=== PATIENT | female | born 1955 | race Caucasian/White ===

== ENCOUNTER 2016-10-09 13:13 | Inpatient (IN) | payer BC ==
[~2016-10-09] VITALS: Ht 152.4 cm; Wt 138.4 kg
[~2016-10-09 13:13] MED LIST: ADVAIR 250/501 DISK IH; ALBUTEROL2.5 MG/3 M IH; AMITRIPTYLINE H50 MG PO; ASPIR-LOW81 MG PO; ATIVAN1 MG PO; BACTRIM,SEPT1 TABLET PO; BENGAY GREASEL113 GM TP; BRILINTA90 MG PO; DIOVAN160 MG PO; DIOVAN320 MG PO; GLUMETZA1000 M1 PO; HUMALOG100 UNIT/2 SC; LANTUS 10100 UNITS/ SC; LANTUS 3 M100 UNITS1 SC; LASIX20 MG PO; LASIX40 MG PO; LO-DOSE ASPIRIN81 M1 PO; LOSARTAN POTAS100 MG PO; LYRICA150 MG PO; LYRICA75 MG PO; MELATONIN5 M1 PO; NOVOLOG PE100 UNITS/ SC; OMEPRAZOLE20 MG PO; PLAVIX75 MG PO; PRAVASTATIN SOD80 MG PO; PRILOSEC20 MG PO; SYMBICORT60 INHALAT IH; TOPROL XL100 MG PO; TYLENOL EXTRA500 MG PO; VICODIN 5-3001 EACH PO; [UNRECOGNIZED DRUG - OTHER]
[2016-10-09 15:03] LABS: BASOPHIL COUNT 0.1 K/uL (0-0.1); EOSINOPHIL (%) 3.2 % (0-5); EOSINOPHIL COUNT 0.3 K/uL (0-0.3); HEMATOCRIT 39.8 % (36.0-46.0); IMMATURE GRANULOCYTE (%) 0.5 % (0.0-0.7); IMMATURE GRANULOCYTE COUNT 0.1 K/uL; LYMPHOCYTE COUNT 3.7 K/uL (1.0-2.8); MCH 27.9 PG (29.0-34.0); MCHC 31.4 G/DL (30.0-36.0); MCV 88.8 FL (83-99); MEAN PLAT.VOLUME 9.4 uM^3 (9.5-12.4); MONOCYTE (%) 5.5 % (3-12); MONOCYTE COUNT 0.6 K/uL (0-0.8); NEUTROPHIL (%) 55.5 % (45-76); PLATELET COUNT 236 K/uL (156-360); RBC DIS.WIDTH-CV 14.6 % (11.8-14.6); RBC DIS.WIDTH-SD 46.7 % (39-53); RED BLOOD COUNT 4.48 M/uL (3.80-5.20); WHITE BLOOD COUNT 10.8 K/uL (4.1-10.2)
[2016-10-09 15:11] LABS: CHLORIDE 104 mEq/L (99-109); POTASSIUM 3.7 mEq/L (3.7-5.4); SODIUM 142 mEq/L (136-147)
[2016-10-09 15:13] LABS: GLUCOSE 127 mg/dL (70-99)
[2016-10-09 15:15] LABS: ANION GAP 10 MEQ/L (2-14)
[2016-10-09 15:17] LABS: GFR ESTIMATE (CALCULATED) > 59 mL/min/
[2016-10-09 15:18] LABS: UREA NITROGEN (BUN) 14 mg/dL (9-23)
[2016-10-09 15:24] LABS: TROP-I INTERPRETATION NEGATIVE; TROPONIN-I < 0.01 ng/mL (0.0-0.30)
[2016-10-09] MEDS ORDERED: LYRICA75 MG PO (16:46)
[2016-10-09] MEDS ORDERED: TOUJEO SOL300 UNIT/1 SC (16:47)
[2016-10-09] MEDS ORDERED: NORCO 5/3251 TABLET PO (16:47)
[2016-10-09] MEDS ORDERED: MEGARED OMEGA-1 EACH PO (16:48)
[2016-10-09] MEDS ORDERED: CO Q-10100 MG PO (16:48)
[2016-10-09 19:07] VITALS: BP 141/63
[2016-10-09 23:44] LABS: POINT-OF-CARE METER ID UU13113725
[2016-10-10 00:47] VITALS: BP 136/72
[2016-10-10 06:32] LABS: HEMATOCRIT 37.9 % (36.0-46.0); MCH 29.4 PG (29.0-34.0); MCHC 33.2 G/DL (30.0-36.0); MCV 88.3 FL (83-99); MEAN PLAT.VOLUME 9.6 uM^3 (9.5-12.4); PLATELET COUNT 244 K/uL (156-360); RBC DIS.WIDTH-CV 14.6 % (11.8-14.6); RED BLOOD COUNT 4.29 M/uL (3.80-5.20); WHITE BLOOD COUNT 10.8 K/uL (4.1-10.2)
[2016-10-10 06:52] VITALS: BP 140/65
[2016-10-10 06:59] LABS: ANION GAP 11 MEQ/L (2-14); CHLORIDE 101 MEQ/L (99-109); GFR ESTIMATE (CALCULATED) > 59 mL/min/; POTASSIUM 4.2 MEQ/L (3.7-5.4); SAMPLE HEMOLYSIS CHECK 0; SAMPLE ICTERIC CHECK 0; SAMPLE LIPEMIA CHECK 0; SODIUM 141 MEQ/L (136-147); UREA NITROGEN (BUN) 18 mg/dL (9-23)
[2016-10-10 07:01] LABS: GLUCOSE 246 mg/dL (70-99)
[2016-10-10 11:04] VITALS: BP 130/63
[2016-10-10 15:08] VITALS: BP 142/66
[2016-10-10 21:25] LABS: POINT-OF-CARE METER ID UU13113725
[2016-10-11 01:03] VITALS: BP 186/81
[2016-10-11 03:17] VITALS: BP 132/59
[2016-10-11 03:58] LABS: POINT-OF-CARE METER ID UU13113725
[2016-10-11 06:41] LABS: POINT-OF-CARE METER ID UU13113725
[2016-10-11 07:54] VITALS: BP 145/67
[2016-10-11 16:17] VITALS: BP 140/76
[2016-10-11 22:05] LABS: POINT-OF-CARE METER ID UU13113725
[2016-10-11 23:33] VITALS: BP 157/67
[2016-10-12] MEDS ORDERED: PREDNISONE10 M1 PO (08:24)
[2016-10-12] MEDS ORDERED: CEFDINIR300 MG PO (08:24)
[2016-10-12 10:25] VITALS: BP 139/69
[2016-10-13 14:21] LABS: POINT-OF-CARE METER ID UU13113725
== END 2016-10-12 12:10 | disposition home or self-care (01) | DRG 190 ==
LOC: EME 13:13 → 5EAST 16:16 → EDOF 16:16 → ENRESERV 16:18 → 5EAST 18:56 → ENPENDDIS 10-12 → 5EAST 10-12 12:10
PROVIDERS: Emergency Medicine; Hospitalist
DX: J44.1 Chronic obstructive pulmonary disease with (acute) exacerbation (principal); J96.01 Acute respiratory failure with hypoxia; I25.10 Atherosclerotic heart disease of native coronary artery without angina pectoris; J44.0 Chronic obstructive pulmonary disease with (acute) lower respiratory infection; J20.9 Acute bronchitis, unspecified; R60.0 Localized edema; I51.9 Heart disease, unspecified; I10 Essential (primary) hypertension; E11.40 Type 2 diabetes mellitus with diabetic neuropathy, unspecified; E66.01 Morbid (severe) obesity due to excess calories; Z68.43 Body mass index [BMI] 50.0-59.9, adult; Z71.3 Dietary counseling and surveillance; G47.33 Obstructive sleep apnea (adult) (pediatric); Z79.4 Long term (current) use of insulin; Z79.51 Long term (current) use of inhaled steroids; Z79.82 Long term (current) use of aspirin; Z95.5 Presence of coronary angioplasty implant and graft; Z82.3 Family history of stroke; Z82.49 Family history of ischemic heart disease and other diseases of the circulatory system; Z83.3 Family history of diabetes mellitus
CPT/HCPCS: 71010; 80048; 82948; 84484; 85025; 85027; 87070; 87205; 93005; 93306; 94640; 94640 76; 94799; 99202; 99281; 99285; J0696; J1644; J1815; J2920; J2930; J7050

== ENCOUNTER → 2017-08-16 | Outpatient (CLI) | payer OTHER ==
[~2017-08-16] VITALS: Ht 152.4 cm; Wt 138.8 kg
[~2017-08-16] MED LIST changes: +CEFDINIR300 MG PO; +CO Q-10100 MG PO; +CYANOCOBALAM1000 MCG PO; +MEGARED OMEGA-1 EACH PO; +NORCO 5/3251 TABLET PO; +PREDNISONE10 M1 PO; +TOUJEO SOL300 UNIT/1 SC
== END | disposition home or self-care (01) ==
LOC: AMB 12:00
PROVIDERS: Specialist
DX: D12.2 Benign neoplasm of ascending colon (principal); D12.3 Benign neoplasm of transverse colon; D12.5 Benign neoplasm of sigmoid colon; K57.30 Diverticulosis of large intestine without perforation or abscess without bleeding; K64.8 Other hemorrhoids; J45.909 Unspecified asthma, uncomplicated; Z86.73 Personal history of transient ischemic attack (TIA), and cerebral infarction without residual deficits; Z79.02 Long term (current) use of antithrombotics/antiplatelets; I10 Essential (primary) hypertension; E78.5 Hyperlipidemia, unspecified; E11.9 Type 2 diabetes mellitus without complications; I25.10 Atherosclerotic heart disease of native coronary artery without angina pectoris; Z95.5 Presence of coronary angioplasty implant and graft; Z79.82 Long term (current) use of aspirin; Z79.4 Long term (current) use of insulin; Z80.0 Family history of malignant neoplasm of digestive organs; Z83.71 Family history of colonic polyps; Z82.49 Family history of ischemic heart disease and other diseases of the circulatory system
CPT/HCPCS: 82948; 88305; J2250